=== PATIENT | male | born 1965 | race Two or more races ===

== ENCOUNTER → 2025-01-30 | Emergency (ER) | payer OTHER ==
[~2025-01-30] VITALS: Ht 180.3 cm; Wt 78.0 kg
[~2025-01-30] MED LIST: 0.9 % SODIUM CHLORIDE 1,000 ML IV SCH; ATORVASTATIN CALCIUM 40 MG TABLET PO STA; ENOXAPARIN SODIUM 80 MG/0.8 ML SYRINGE SUBCUTANEO STA; METOPROLOL SUCCINATE 25 MG TAB.SR.24H PO STA; TICAGRELOR 90 MG TABLET PO ONE; TICAGRELOR 90 MG TABLET PO STA
[2025-01-30 08:36] LABS: BASO % 0.7 % (0.1-1.2); EOS # 0.15 (0.04-0.54); EOS % 2.1 % (0.7-7.0); LYMPH # 1.81 (1.18-3.74); LYMPH % 25.2 % (19.3-53.1); MEAN PLATELET VOLUME 11.10 fl (9.4-12.4); MONO # 0.68 (0.24-0.82); MONO % 9.5 % (4.7-12.5); NEUT # 4.46 (1.56-6.13); NEUT % 62.2 % (34.0-71.1); RED CELL DISTRIBUTION WIDTH 13.6 % (11.6-14.4)
[2025-01-30 08:41] LABS: URINE APPEARANCE Clear; URINE BILIRRUBIN Negative (NEGATIVE); URINE BLOOD Trace; URINE COLOR Yellow; URINE GLUCOSE Negative (NEGATIVE); URINE KETONE Negative (NEGATIVE); URINE LEUKOCYTE Negative; URINE NITRATE Negative; URINE PROTEIN Negative (NEGATIVE); URINE UROBILINOGEN 0.2 E.U./dl
[2025-01-30 08:45] LABS: URINE RBC 5.5 uL (0.0-20.8); URINE WBC 3.2 uL (0.0-23.2)
[2025-01-30 09:15] LABS: URINE BACTERIA 3.5 uL (0.0-1933); URINE CAST 0.14 uL (0.0-1.40); URINE EPITHELIAL CELLS 0.9 uL (0.0-38.8)
[2025-01-30 09:16] LABS: INR < 0.93
[2025-01-30 09:35] LABS: ALT/SGPT 22 U/L (12-78); AST/SGOT 18 U/L (15-37); BILIRUBIN TOTAL 0.38 mg/dL (0.3-1.2); BUN CREA RATIO 21 (7.0-25.0); CREATININE SERUM 1.26 mg/dL (0.70-1.30); GFR 58.18; GLOBULINA 3.6 G/DL (2.4-3.5); GLUCOSE FASTING 107 mg/dL (65-100); OSMOLALITY SERUM 292 MOSM/KG (275-295)
== END | disposition designated cancer center or children's hospital (05) ==
LOC: ER 03:19
PROVIDERS: Physician Assistant Medical
DX: I48.91 Unspecified atrial fibrillation (principal); I21.4 Non-ST elevation (NSTEMI) myocardial infarction; R00.2 Palpitations